=== PATIENT | female | born 1970 | race Caucasian/White ===

== ENCOUNTER 2021-04-03 11:36 | Emergency (ER) | payer OTHER ==
[~2021-04-03] VITALS: Ht 162.6 cm; Wt 72.6 kg
[2021-04-03] MEDS ORDERED: CENTANY30 GM TOP (13:10)
[2021-04-03] MEDS ORDERED: TRIAMCINOLONE A80 G2 TOP (13:10)
[2021-04-03] MEDS ORDERED: PREDNISONE 10 M10 MG PO (13:10)
[2021-04-03] MEDS ORDERED: PEPCID20 MG PO (13:10)
[2021-04-03] MEDS ORDERED: BENADRYL25 MG PO (13:10)
[2021-04-03 13:30] VITALS: BP 181/88
== END 2021-04-03 13:32 | disposition home or self-care (01) ==
LOC: M.ERS 11:36
DX: L01.09 Other impetigo (principal); L25.9 Unspecified contact dermatitis, unspecified cause; Z88.6 Allergy status to analgesic agent; Z88.1 Allergy status to other antibiotic agents; Z88.0 Allergy status to penicillin